=== PATIENT | male | born 1985 | race Caucasian/White ===

== ENCOUNTER 2016-10-28 17:31 | Emergency (ER) | payer OTHER ==
[~2016-10-28] VITALS: Ht 157.5 cm; Wt 50.8 kg
--- NOTE | 2016-10-28 17:48 | ED GI/GU/ABDOMINAL COMPLAINT ---
History of Present Illness General Chief Complaint: General Adult Stated Complaint: BLOOD IN STOOL Source: patient, family Exam Limitations: no limitations Vital Signs & Intake/Output Vital Signs & Intake/Output Vital Signs Date Time Temp Pulse Resp B/P Pulse O2 O2 Flow FiO2 Ox Delivery Rate 10/28 1928 98.6 104 20 157/99 99 Room Air 10/28 1920 99 Room Air 10/28 1735 97.6 110 20 158/101 100 Room Air ED Intake and Output 10/29 0000 10/28 1200 Intake Total Output Total 100 Balance -100 Output, Urine 100 Patient 112 lb Weight Allergies Coded Allergies: verapamil (Intermediate, HYPOTENSION 10/28/16) Penicillins (Mild, RASH 10/28/16) Reconcile Medications No Known Home Medications Triage Note: TRIAGE: PT TO ER WITH MOTHER C/C "BLACK IN STOOL SINCE YESTERDAY". ALSO COMPLAINS OF STOMACH PAIN X COUPLE HOURS GI ASST. -N/V/D. LNBM TODAY. DENIES BLOOD IN STOOL STATES "JUST THAT BLACK CHUNKS". REPORTS URINARY PROBLEMS AT BASELINE, "I'VE BEEN HAVING CONSTANT BLADDER PROBLEMS WHERE URINE IS CONSTANTLY FLOWING INTO THE URETHRA AND NUMBNESS AND TINGLING DOWN PENILE". ALSO, "HAVE A PROBLEM WITH NUMB BUTTOCKS". HAS HAD THESE PROBLEMS FOR 2 YEARS. Triage Nurses Notes Reviewed? yes HPI: Patient is a 31 year old male presents complaining of black stool x 2 days. Has had black stool in the past, but had not lasted for more than 1 day previously. Left lower quadrant pressure/bloating sensation. No exacerbating or alleviating factors. Patient has not taken any medication for his symptoms. Denies fevers, chills, nausea, vomiting. Patient reports that he has had decreased sensation in his penis and rectal area for 2 years. Patient has been seen in multiple emergency departments, has had multiple MRI's and was seen by a neurosurgeon and reports that he has been ruled out for cauda equina syndrome. Patient previously diagnosed with multiple vitamin deficiencies(Vitamins A, C, B1, B12, folic acid) by Dr. Love, does not take any vitamin supplementation. Patient looking for a new primary doctor. (CINDY HAYS,KIRILL) Past History Travel History Traveled to [place] past 21 day No Medical History Any Pertinent Medical History? 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 No (KIRILL GUERRERO) Review of Systems Review of Systems Constitutional: Denies: chills, fever. EENTM: Reports: no symptoms. Respiratory: Denies: cough, short of breath. Cardiovascular: Denies: chest pain. GI: Reports: see HPI. Genitourinary: Reports: see HPI. Musculoskeletal: Reports: no symptoms. Skin: Reports: no symptoms. Neurological/Psychological: Reports: numbness (in p). Hematologic/Endocrine: Denies: bruising, bleeding. Immunologic/Allergic: Denies: splenectomy. (KIRILL GUERRERO) Physical Exam Physical Exam General Appearance: alert, awake, anxious Head: atraumatic, normal appearance Eyes: Bilateral: normal appearance, PERRL, EOMI. Ears, Nose, Throat, Mouth: hearing grossly normal, moist mucous membrane Neck: normal inspection, supple, full range of motion Respiratory: normal breath sounds, chest non-tender, no respiratory distress Cardiovascular: regular rate/rhythm Gastrointestinal: normal bowel sounds, soft, non-tender Rectal: Brown stool heme-negative Back: normal inspection, normal range of motion Extremities: normal range of motion Neurologic/Psych: no motor/sensory deficits, awake, alert, oriented x 3, normal gait, normal mood/affect Skin: intact, normal color, warm/dry Core Measures ACS in differential dx? No Severe Sepsis Present: No Septic Shock Present: No (KIRILL GUERRERO) Progress Differential Diagnosis: anemia, GI bleed, vitamin deficiency, cauda equina, anxiety Plan of Care: Orders Procedure Date/time Status URINALYSIS 10/28 180 Complete PROTHROMBIN TIME 10/29 1807 Complete COMPREHENSIVE METABOLIC PANEL 10/29 1807 Complete CBC WITHOUT DIFFERENTIAL 10/29 1807 Complete TYPE & SCREEN (NOT X-MATCH) 10/28 180 Complete Laboratory Tests 10/28/16 1916: Urine Color YEL, Urine Clarity CLEAR, Urine pH 8.0, Ur Specific [place] 1.015, Urine Protein TRACE H, Urine Ketones NEG, Urine Nitrite NEG, Urine Bilirubin NEG, Urine Urobilinogen 1.0, Ur Leukocyte Esterase NEG, Ur Microscopic SEDIMENT EXAMINED, Urine RBC RARE, Urine WBC RARE, Ur Epithelial Cells RARE, Urine Hemoglobin NEG, Urine Glucose NEG 10/28/165: Anion Gap 14, Estimated GFR > 60, BUN/Creatinine Ratio 15.6, Glucose 88, Calcium 9.4, Total Bilirubin 1.5 H, AST 39, ALT 66, Alkaline Phosphatase 89, Total Protein 7.2, Albumin 4.6, Globulin 2.6, Albumin/Globulin Ratio 1.8, PT 13.1 H, INR 1.25 H, CBC w Diff NO MAN DIFF REQ, RBC 3.78 L, MCV 103.0 H, MCH 35.2 H, RDW 15.2 H, MPV 7.7, Gran % 58.7, Lymphocytes % 33.4, Monocytes % 5.9, Eosinophils % 1.4, Basophils % 0.6, Absolute Granulocytes 2.1, Absolute Lymphocytes 1.2, Absolute Monocytes 0.2, Absolute Eosinophils 0.1, Absolute Basophils 0, PUBS MCHC 34.2 Patient brought in stool sample from home. Stool is brown, there was a small area of black stool which looks like an undigested food particle. Normal rectal tone. Patient has had symptoms of numbness x 2 years, with multiple MRIs at other facilities and evaluation by neurosurgery. Further spine imaging deferred. Patient with hemoglobin of 12.2, macrocytosis. Discussed results of labs with patient and importance of the vitamin supplementation that his previous doctor had recommended for him. No signs of GI bleeding. Appears stable for discharge. (KIRILL GUERRERO) Initial ED EKG: none (KIRILL GUERRERO) Departure Departure Time of Disposition: 1951 Disposition: HOME OR SELF CARE Condition: Stable Clinical Impression Primary Impression: Macrocytic anemia Referrals: JUSTYNA SUBRAMANIAN DO, MD,JOEL LEI MD,ADEBAYO PATIENT HAS NO PRIMARY CARE DR (PCP/Family) ABIGAIL LOVE MD Additional Instructions: Follow-up with Dr. Love or with one of the primary care doctors listed in your discharge paperwork. Start taking a multivitamin daily. Return to the emergency department if worsening of symptoms. Departure Forms: Customer Survey General Discharge Information Prescriptions: Current Visit Scripts No Known Home Medications (CINDY HAYSKIRILL) PA/TYPING SECRETARY Co-Sign Statement Statement: ED Attending supervision documentation- [] I saw and evaluated the patient. I have also reviewed all the pertinent lab results and diagnostic results. I agree with the findings and the plan of care as documented in the PA's/TYPING SECRETARY's documentation. [x] I have reviewed the ED Record and agree with the PA's/TYPING SECRETARY's documentation. [] Additions or exceptions (if any) to the PAs/TYPING SECRETARY's note and plan are summarized below: [] (MARLEN YANG,JUNIOR Mendoza)
[2016-10-28 19:18] LABS: ABSOLUTE BASOPHIL COUNT 0 /CUMM (0.0-0.2); ABSOLUTE EOSINOPHIL COUNT 0.1 /CUMM (0.0-0.7); ABSOLUTE GRANULOCYTE CT 2.1 /CUMM (1.4-6.5); ABSOLUTE LYMPH COUNT 1.2 /CUMM (1.2-3.4); ABSOLUTE MONOCYTE COUNT 0.2 /CUMM (0.10-0.60); BASOPHIL % 0.6 % (0.0-2.0); EOSINOPHIL % 1.4 % (0-5); GRANULOCYTE % 58.7 % (42.2-75.2); MEAN CORPUSCULAR HGB 35.2 PG (27.0-31.0); MEAN CORPUSCULAR HGB CONC 34.2 G/DL (33.0-37.0); MEAN PLATELET VOLUME 7.7 FL (7.4-10.4); PLATELET COUNT 242 /CUMM (130-400); RBC DISTRIBUTION WIDTH 15.2 % (11.5-14.5); RED BLOOD CELL CT 3.78 /CUMM (4.70-6.10); WHITE BLOOD CELL COUNT 3.5 /CUMM (4.8-10.8)
[2016-10-28 19:22] LABS: PT 13.1 SEC (9.4-12.5)
[2016-10-28 19:29] VITALS: BP 157/99
== END 2016-10-28 19:52 ==
LOC: ERH 17:31
PROVIDERS: Physician Assistant
DX: D64.9 Anemia, unspecified (principal)
CPT/HCPCS: 81001

== ENCOUNTER 2016-12-19 16:17 | Emergency (ER) | payer OTHER ==
[~2016-12-19] VITALS: Ht 157.5 cm; Wt 49.9 kg
[2016-12-19 18:44] VITALS: BP 142/94
[2016-12-19 18:51] LABS: ABSOLUTE BASOPHIL COUNT 0 /CUMM (0.0-0.2); ABSOLUTE EOSINOPHIL COUNT 0 /CUMM (0.0-0.7); ABSOLUTE LYMPH COUNT 1.2 /CUMM (1.2-3.4); ABSOLUTE MONOCYTE COUNT 0.3 /CUMM (0.10-0.60); BASOPHIL % 0.7 % (0.0-2.0); EOSINOPHIL % 0.6 % (0-5); GRANULOCYTE % 56.5 % (42.2-75.2); MEAN CORPUSCULAR HGB 35.2 PG (27.0-31.0); MEAN CORPUSCULAR HGB CONC 34.1 G/DL (33.0-37.0); MEAN CORPUSCULAR VOLUME 103.3 FL (80.0-94.0); MEAN PLATELET VOLUME 7.2 FL (7.4-10.4); PLATELET COUNT 246 /CUMM (130-400); RBC DISTRIBUTION WIDTH 15.9 % (11.5-14.5); RED BLOOD CELL CT 3.78 /CUMM (4.70-6.10); WHITE BLOOD CELL COUNT 3.5 /CUMM (4.8-10.8)
--- NOTE | 2016-12-19 18:56 | ED GI/GU/ABDOMINAL COMPLAINT ---
History of Present Illness General Chief Complaint: Abdominal Pain/Flank Pain Stated Complaint: AND PAIN X 2 WEEKS Source: patient Exam Limitations: no limitations Vital Signs & Intake/Output Vital Signs & Intake/Output Vital Signs Date Time Temp Pulse Resp B/P B/P Pulse O2 O2 Flow FiO2 Mean Ox Delivery Rate 12/19 1844 98.8 94 20 142/94 100 Room Air 12/19 1628 98.7 100 16 114/97 98 Room Air Allergies Coded Allergies: verapamil (Intermediate, HYPOTENSION 10/28/16) Penicillins (Mild, RASH 10/28/16) Reconcile Medications No Known Home Medications Triage Note: PT HAVING ABD PAIN BOTH SIDES STATES HE FEELS HE HAS A LOT OF GAS. PT REPORTS THE PAIN STARTED 1.5 WEEKS AGO AND THE PAIN COMES AND GOES BUT WORSE THE PAST 24 HOURS. PT STATES HE IS HAVING DIARRHEA NO BLOOD. Triage Nurses Notes Reviewed? yes Duration: waxing and waning Timing: recent history Severity Numbers: 7 Location: generalized abdomen Radiation: no radiation Activities at Onset: eating Prior Abdominal Problems: similar symptoms HPI: Patient is a 31-year-old male who states that he has significant multi-vitamin deficiencies in his system however he has been advised to take vitamin supplementation however he is noncompliant with this request by multiple evaluations from his primary care doctor who presents emergency room with a chronic history of gas pain of his abdomen in the last 10 days she's been complaining of worsening waxing and waning abdominal pain that's made worse with palpation and eating. Patient does state that flatulence improves his symptoms. Last bowel movement was today no blood no melena noted. Patient is able tolerate by mouth with no nausea or vomiting. Denies any alcohol use or NSAID use. Patient was evaluated at [facility] emergency room on 10/28/2016 for concerns of GI bleed however he was safely discharged noting macrocytic anemia and was strongly advised to follow-up with his primary care doctor which patient has not. Patient is requesting a new primary care doctor. Denies any fevers chills back pain dysuria hematuria. Patient also admits to me that he believes that he has multiple food allergies however no official workup has been performed and states that he only eats chicken for meals and which he states that he's been doing this for many months (SUNDAR CERVANTES) Past History Travel History Traveled to [place] past 21 day No Medical History Any Pertinent Medical History? 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 No (SUNDAR CERVANTES) Review of Systems Review of Systems Constitutional: Reports: no symptoms. EENTM: Reports: no symptoms. Respiratory: Reports: no symptoms. Cardiovascular: Reports: no symptoms. GI: Reports: see HPI, abdominal pain, bloating. Genitourinary: Reports: no symptoms. Musculoskeletal: Reports: no symptoms. Skin: Reports: no symptoms. Neurological/Psychological: Reports: no symptoms. Hematologic/Endocrine: Reports: no symptoms. Immunologic/Allergic: Reports: no symptoms. All Other Systems: Reviewed and Negative (SUNDAR CERVANTES) Physical Exam Physical Exam General Appearance: no apparent distress, alert, comfortable Gastrointestinal: normal bowel sounds, soft, mild generalized abdominal pain Comments: Well-developed well-nourished person in no acute distress HEENT: Normal EENT exam, extraocular motion intact, no nystagmus. Pupils equally round and reactive to light and accommodation. Nose is atraumatic. External auditory canal and Tympanic membranes clear. Pharynx normal. No swelling or edema. Neck: Supple, no lymphadenopathy, normal range of motion without pain or tenderness Back: Nontender, no CVA tenderness. Cardiovascular: Regular rate and rhythms no murmurs rubs or gallops, normal JVP Respiratory: Chest nontender. No respiratory distress.breath sounds clear to auscultation bilaterally Extremity: No edema, no calf tenderness to palpation, normal and equal pulses. Neuro: Alert oriented x3, motor sensory normal, Skin: No appreciable rash on exposed skin, skin is warm and dry. Psych: Mood and affect is normal, memory and judgment is normal. Core Measures ACS in differential dx? No Severe Sepsis Present: No Septic Shock Present: No (SUNDAR CERVANTES) Progress Differential Diagnosis: AAA, AMI, appendicitis, biliary colic, bowel obstruction , colon cancer, cholecystitis, diverticulitis, gastritis, hepatitis, hernia, ischemic bowel, inflamm bowel dis, Becca-Ren tear, orchitis, pancreatitis, prostatitis, peptic ulcer, PUD/GERD, perforated viscous, pyelonephritis, SBO, testicular torsion, ureterolithiasis, urinary retention, urethritis, UTI/pyelo Plan of Care: Orders Procedure Date/time Status Add-on Test (ER Only) 12/19 1849 Active LIPASE 12/19 1842 Complete AMYLASE 12/19 1842 Complete LACTIC ACID 12/19 1833 Complete COMPREHENSIVE METABOLIC PANEL 12/19 1833 Complete CBC WITHOUT DIFFERENTIAL 12/19 1833 Complete URINALYSIS 12/19 164 Complete Laboratory Tests 12/19/162133: Lactic Acid Cancelled 12/19/161842: Anion Gap 13, Estimated GFR > 60, BUN/Creatinine Ratio 13.0, Glucose 84, Lactic Acid 1.8, Calcium 9.4, Total Bilirubin 1.7 H, AST 41, ALT 74 H, Alkaline Phosphatase 89, Total Protein 7.4, Albumin 4.7, Globulin 2.7, Albumin/Globulin Ratio 1.7, Amylase 130 H, Lipase 175 12/19/161833: CBC w Diff NO MAN DIFF REQ, RBC 3.78 L, MCV 103.3 H, MCH 35.2 H, RDW 15.9 H, MPV 7.2 L, Gran % 56.5, Lymphocytes % 33.4, Monocytes % 8.8, Eosinophils % 0.6, Basophils % 0.7, Absolute Granulocytes 2.0, Absolute Lymphocytes 1.2, Absolute Monocytes 0.3, Absolute Eosinophils 0, Absolute Basophils 0, PUBS MCHC 34.1 12/19/161646: Urine Color STRAW, Urine Clarity CLEAR, Urine pH 7.0, Ur Specific [place] <= 1.005, Urine Protein NEG, Urine Ketones NEG, Urine Nitrite NEG, Urine Bilirubin NEG, Urine Urobilinogen 0.2, Ur Leukocyte Esterase NEG, Ur Microscopic EXAM NOT REQUIRED, Urine Hemoglobin NEG, Urine Glucose NEG Patient currently is in no apparent distress and has normal bowel sounds I counseled patient on obtaining a primary care doctor to follow up with and to begin vitamin supplementation regimen for his chronic deficiencies and to begin eating a well balanced healthy dietary intake to improve his symptoms. Patient also was strongly advised to follow up and obtain ultrasound of right upper quadrant however he has no right upper quadrant tenderness on exam. He was GIVEN AN [place].S. REFERAL FOR mildly elevated bilirubin Patient also was requesting outpatient psychiatric follow-up for anxiety. Patient has unremarkable acute findings of blood work patient was strongly advised to follow-up with primary care doctor at [facility] and to follow up with GI if his symptoms continue. Upon discharge patient looks well no apparent distress and will comply with discharge instructions and had no questions (SUNDAR CERVANTES) Initial ED EKG: none (SUNDAR CERVANTES) Departure Departure Disposition: HOME OR SELF CARE Condition: Stable Clinical Impression Primary Impression: Abdominal pain Referrals: MISAEL YANG,ANNA Jay PATIENT HAS NO PRIMARY CARE DR (PCP/Family) Additional Instructions: As discussed begin eating a well healthy balanced diet Please call the phone number at Central scheduling for an outpatient ultrasound tomorrow as THIS prescription has been given TO YOU [phone]. If symptoms worsen return to emergency room. Please call the list of [facility] tomorrow to establish a primary care doctor. If no better in 5 days follow-up and establish topographical engineer DR. DOUGLAS. Please call the list of [facility] outpatient crisis facilities for further evaluation treatment. Departure Forms: Customer Survey General Discharge Information Prescriptions: Current Visit Scripts No Known Home Medications (SUNDAR CERVANTES) PA/HOME HEALTH LPN Co-Sign Statement Statement: ED Attending supervision documentation- [] I saw and evaluated the patient. I have also reviewed all the pertinent lab results and diagnostic results. I agree with the findings and the plan of care as documented in the PA's/HOME HEALTH LPN's documentation. [X] I have reviewed the ED Record and agree with the PA's/HOME HEALTH LPN's documentation. [] Additions or exceptions (if any) to the PAs/HOME HEALTH LPN's note and plan are summarized below: [] (ZORAIDA YANG,VALERIA Mathew)
== END 2016-12-19 20:20 ==
LOC: ERH 16:17
PROVIDERS: Emergency Medicine
DX: R10.84 Generalized abdominal pain (principal)
CPT/HCPCS: 81003

== ENCOUNTER 2017-03-01 08:51 | Emergency (ER) | payer OTHER ==
[~2017-03-01] VITALS: Ht 157.5 cm; Wt 56.7 kg
--- NOTE | 2017-03-01 09:09 | ED GENERAL ADULT ---
History of Present Illness General Chief Complaint: General Adult Stated Complaint: NUMBNESS AND TINGILING ? Source: patient Exam Limitations: no limitations Vital Signs & Intake/Output Vital Signs & Intake/Output Vital Signs Date Time Temp Pulse Resp B/P B/P Pulse O2 O2 Flow FiO2 Mean Ox Delivery Rate 03/01 1022 97.1 80 20 143/92 100 Room Air 03/01 0858 99.2 87 20 149/87 99 Room Air Allergies Coded Allergies: verapamil (Intermediate, HYPOTENSION 10/28/16) Penicillins (Mild, RASH 10/28/16) Reconcile Medications No Known Home Medications Triage Note: PT C/O NUMB BUTTOCKS AND DECREASED FEELING IN RECTUM AND PENIS X 3 DAYS. 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 HAS SEEN NEUROSURGEON [place] FOR SAME PROBLEM WHO TOLD HIM IT ISN'T ASSOCIATED WITH THORACIC HERNIATED DISC IN PAST Triage Nurses Notes Reviewed? yes Onset: 3 days HPI: Mr. Roman is 31 year old male with past medical history of anxiety not on any medication, follow with psychologist. He reported chronic history of numbness and decreased sensation of the perineal area and penis for many years, had multiple MRI and thoracic surgery evaluation without ultimate diagnosis. Patient reported that for the last 3 days noticed more numbness of the area, denied stool incontinence, urinary incontinence, weakness, numbness of hands or feet, history of trauma, history of fall, recent GI or upper respiratory infection. Patient reported multivitamin deficiencies and new adjustment of his diet for which he gained 20 pounds and he thinks it might precipitate for the change in his symptoms. Patient is very obsessive about "cauda equina syndrome", has been reading about it for years and want to know if it fits his symptoms and if he needs to get any more imaging studies to prove it. He was advised to follow with neurology in the past but given his insurance he wasn't able to follow up with your clinic. Review of systems negative for any chest pain, palpitation, shortness of breath, cough, abdominal pain, nausea or vomiting, diarrhea or constipation, muscle or joint pain, headache or blurry vision Vital signs are stable Patient refused GA exam and understand the clinical importance of this exam and accept the risk of his decision. (MARIKA YANG,TIMOTEO) Past History Travel History Traveled to [place] past 21 day No Medical History Any Pertinent Medical History? 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 No (MARIKA YANG,[facility]) Review of Systems Review of Systems Constitutional: Denies: chills, fever, weakness. EENTM: Denies: blurred vision, visual changes, ear discharge, hearing changes. Respiratory: Denies: cough, hemoptysis, orthopnea, short of breath, sputum production. Cardiovascular: Denies: chest pain, edema, orthopena, palpitations. GI: Denies: abdominal pain, bloating, diarrhea, nausea, vomiting. Genitourinary: Denies: discharge, dysuria, frequency, hematuria. Musculoskeletal: Denies: back pain, gout, joint pain, joint swelling, muscle pain, muscle stiffness, neck pain. Skin: Denies: change in skin color, change in hair/nails. Neurological/Psychological: Reports: anxiety, numbness. Denies: ataxia, cognitive dysfunction, confusion, depressed, dementia, headache, paresthesia, tingling, tremors. Hematologic/Endocrine: Denies: bruising, bleeding, polyuria, polydipsia. (MARIKA YANG,[facility]) Review of Systems Immunologic/Allergic: Reports: no symptoms. All Other Systems: Reviewed and Negative (ZORAIDA YANG,VALERIA Mathew) Physical Exam Physical Exam General Appearance: well developed/nourished, no apparent distress, alert, awake , comfortable Head: atraumatic, normal appearance Eyes: Bilateral: normal appearance, PERRL, EOMI. Ears, Nose, Throat: normal pharynx, normal ENT inspection, hearing grossly normal Neck: normal inspection, supple, full range of motion Respiratory: normal breath sounds, chest non-tender, no respiratory distress Cardiovascular: regular rate/rhythm Gastrointestinal: normal bowel sounds, soft, non-tender, no organomegaly Rectal: Patient refused exam Back: normal inspection, normal range of motion, no vertebral tenderness Extremities: normal inspection, normal capillary refill, normal range of motion, no edema Neurologic/Psych: no motor/sensory deficits, awake, alert, oriented x 3 Reflexes: 2+: bicep (R), bicep (L), knee (R), knee (L), ankle (R), ankle (L). Skin: intact, normal color, warm/dry Lymphatic: no anterior cervical bandar Comments: perineal area no skin changes, normal sensation Core Measures ACS in differential dx? No CVA/TIA Diagnosis: No Severe Sepsis Present: No Septic Shock Present: No (TIMOTEO HAIRSTON MD) Progress Differential Diagnoses I considered the following diagnoses in my evaluation of the patient: [ herniating disc, cauda equina syndrome, nerve compression, periphral neuropathy ] Plan of Care: Mr. Roman is 51 year old male with past medical history significant for anxiety. Based on patient's symptoms and physical exam, herniated disc, cauda equina syndrome were excluded. Patient might have these symptoms as a result of prolongated pressure to the area, he reported spending most of the day sitting and searching in the computer. Patient might benefit from seeing neurology clinic, was provided with [facility] neuro clinic that would accept his insurance. No further imaging study is recommended at this time. Patient will be discharged home. Initial ED EKG: none (TIMOTEO HAIRSTON MD) Differential Diagnoses I considered the following diagnoses in my evaluation of the patient: (ZORAIDA YANG,VALERIA Mathew) Departure Departure Disposition: HOME OR SELF CARE Condition: Stable Clinical Impression Primary Impression: Anxiety Referrals: PATIENT HAS NO PRIMARY CARE DR (PCP/Family) Departure Forms: Customer Survey General Discharge Information Prescriptions: Current Visit Scripts No Known Home Medications (TIMOTEO HAIRSTON MD) Resident Co-Sign Statement Statement: ED Attending supervision documentation- [X] I saw and evaluated the patient. I have also reviewed all the pertinent lab results and diagnostic results. I agree with the findings and the plan of care as documented in the Resident's documentation. [X] I have reviewed the ED Record and agree with the Resident's documentation. [] Additions or exceptions (if any) to the Resident's note and plan are summarized below: [I personally seen and examined this patient. I read the above note and agree with what has been written. Patient presents with increasing numbness to his perineal area. Patient denies any incontinence of bowel or bladder. Patient states he has been worked up for cauda equina in the past and was told that he did not have it however he is concerned that he does have a. Patient is adamantly refusing a rectal exam. Patient states that he did a self rectal exam a few weeks ago and that seems to be exacerbated the symptoms so he refuses to have another one. Patient advised that that is the only way that we can rule out any rectal incontinence consistent with cauda equina. Patient states that what he needs is an outpatient MRI and that is what he is here for Us order. Patient has been intermittent bleeding in the emergency department with a normal steady gait. Patient's reflexes are 2+ symmetrically.] (ZORAIDA YANG,VALERIA Mathew) Critical Care Note Critical Care Note Critical Care Time: non-applicable (TIMOTEO HAIRSTON MD) ED Attending Observation Initial Observation Note: I have seen and personally examined MAXINE ROMAN on 03/01/17 at 1016. I agree with the current emergency department documentation. The disposition (admission or discharge) is uncertain at this time, he needs a period of observation for the following reason(s): The ED Nurse caring for this patient has been personally informed as to what the patient is being observed for. (TIMOTEO HAIRSTON MD)
[2017-03-01 10:22] VITALS: BP 143/92
== END 2017-03-01 10:35 ==
LOC: ERH 08:51
DX: F41.9 Anxiety disorder, unspecified (principal)

== ENCOUNTER 2017-10-04 15:28 | Observation (INO) | payer OTHER ==
[~2017-10-04] VITALS: Ht 157.5 cm; Wt 51.7 kg
[2017-10-04 16:49] LABS: ABSOLUTE BASOPHIL COUNT 0 /CUMM (0.0-0.2); ABSOLUTE EOSINOPHIL COUNT 0 /CUMM (0.0-0.7); ABSOLUTE GRANULOCYTE CT 12.8 /CUMM (1.4-6.5); ABSOLUTE LYMPH COUNT 0.7 /CUMM (1.2-3.4); ABSOLUTE MONOCYTE COUNT 0.5 /CUMM (0.10-0.60); BASOPHIL % 0.2 % (0.0-2.0); EOSINOPHIL % 0.1 % (0-5); HEMATOCRIT 47.3 % (42-52); MEAN CORPUSCULAR HGB 29.3 PG (27.0-31.0); MEAN CORPUSCULAR HGB CONC 33.4 G/DL (33.0-37.0); MEAN CORPUSCULAR VOLUME 87.7 FL (80.0-94.0); MEAN PLATELET VOLUME 8.9 FL (7.4-10.4); PLATELET COUNT 274 /CUMM (130-400); RBC DISTRIBUTION WIDTH 13.5 % (11.5-14.5); RED BLOOD CELL CT 5.39 /CUMM (4.70-6.10); WHITE BLOOD CELL COUNT 14.1 /CUMM (4.8-10.8)
[2017-10-04 16:51] LABS: GRANULOCYTE % 91.1 % (42.2-75.2)
--- NOTE | 2017-10-04 19:42 | ED GENERAL ADULT ---
See Addendum History of Present Illness General Chief Complaint: Abdominal Pain/Flank Pain Stated Complaint: R FLANK PAIN Source: patient Exam Limitations: no limitations Vital Signs & Intake/Output Vital Signs & Intake/Output Vital Signs Date Time Temp Pulse Resp B/P B/P Pulse O2 O2 Flow FiO2 Mean Ox Delivery Rate 10/04 1953 98.4 10/04 1749 99.4 10/04 1534 97.3 102 15 135/81 100 Room Air Room Air Allergies Coded Allergies: verapamil (Intermediate, HYPOTENSION 10/28/16) Penicillins (Mild, RASH 10/28/16) nortriptyline (DRY EYES 05/13/17) pimecrolimus (From ELIDEL) (SKIN BURNED 05/13/17) Reconcile Medications No Known Home Medications Triage Note: PT TO ED FOR C/C OF R FLANK PAIN THAT STARTED THIS MORNING WITH ONE EPISODE OF VOMITING THIS MORNING WELL. DENIES DIFFICULTIES URINATING. DENIES DIFFICULTY MOVING BOWELS. Triage Nurses Notes Reviewed? yes Onset: Abrupt Duration: minute(s): Timing: recent history HPI: 10/04/17 7 pm 32-year-old male presents to the emergency department with a one-day history of right-sided flank pain and vomiting. He said he was in his usual state of health until today when he developed right-sided flank pain and vomiting. He also admits to body aches and fever. He denies any hematuria or diarrhea. The onset of symptoms was abrupt, the duration has been just today, the severity is significant; as his symptoms required him to come to the emergency department for care Past History Travel History Traveled to [place] past 21 day No Medical History Any Pertinent Medical History? 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 No Review of Systems Review of Systems Constitutional: Reports: chills, fever. EENTM: Denies: nasal congestion. Respiratory: Denies: short of breath. Cardiovascular: Denies: chest pain. GI: Reports: abdominal pain, nausea, vomiting. Genitourinary: Denies: hematuria. Musculoskeletal: Reports: back pain, muscle pain. Skin: Denies: rash. Neurological/Psychological: Reports: paresthesia. Hematologic/Endocrine: Denies: bruising, bleeding. Physical Exam Physical Exam General Appearance: alert, awake, anxious, mild distress Head: atraumatic, normal appearance Eyes: Bilateral: normal appearance, PERRL, EOMI. Ears, Nose, Throat: normal pharynx, normal ENT inspection, hearing grossly normal Neck: normal inspection, supple, full range of motion Respiratory: normal breath sounds, chest non-tender, no respiratory distress Cardiovascular: regular rate/rhythm Peripheral Pulses: 4+ radial (R), 4+ radial (L) Gastrointestinal: soft, non-tender Back: CVA tenderness (R) Extremities: normal range of motion Neurologic/Psych: no motor/sensory deficits, awake, alert, oriented x 3 Skin: intact, normal color, warm/dry Comments: exam was normal. No hernia. No testicular tenderness or swelling. Core Measures ACS in differential dx? No CVA/TIA Diagnosis: No Sepsis Present: No Sepsis Focused Exam Completed? No Progress Differential Diagnoses I considered the following diagnoses in my evaluation of the patient: [Influenza , appendicitis, pyelonephritis, ureterolithiasis, hernia, testicular torsion] Plan of Care: Orders Procedure Date/time Status RAPID VIRAL INFLUENZA A 10/[address] ABD & PELVIS W/O IV CONTRAS 10/04 2004 Active Add-on Test (ER Only) 10/04 1854 Active CULTURE,URINE 10/04 1640 Active LIPASE 10/04 1621 Complete C-REACTIVE PROTEIN 10/04 1621 Complete COMPREHENSIVE METABOLIC PANEL 10/04 1621 Complete CBC WITHOUT DIFFERENTIAL 10/04 1621 Complete URINALYSIS 10/04 1538 Complete Laboratory Tests 10/04/17 1640: Urine Color YEL, Urine Clarity CLEAR, Urine pH 6.0, Ur Specific [place] >= 1.030 , Urine Protein 30 H, Urine Ketones >=80, Urine Nitrite NEG, Urine Bilirubin NEG@ICTO, Urine Urobilinogen 0.2, Ur Leukocyte Esterase NEG, Ur Microscopic SEDIMENT EXAMINED, Urine RBC 3-5, Urine WBC 1-3 H, Ur Epithelial Cells FEW, Urine Bacteria FEW H, Granular Casts FEW H, Urine Mucus MANY H, Urine Hemoglobin TRACE-INTACT H, Urine Glucose NEG 10/04/17 1636: Anion Gap 22 H, Estimated GFR > 60, BUN/Creatinine Ratio 23.0, Glucose 96, Calcium 10.3 H, Total Bilirubin 1.0, AST 31, ALT 51, Alkaline Phosphatase 102, C-Reactive Prot, Quant 1.0, Total Protein 8.7 H, Albumin 5.6 H, Globulin 3.1, Albumin/Globulin Ratio 1.8, Lipase 140, CBC w Diff MAN DIFF ORDERED, RBC 5.39, MCV 87.7, MCH 29.3, MCHC 33.4, RDW 13.5, MPV 8.9, Gran % 91.1 H, Lymphocytes % 4.8 L, Monocytes % 3.8, Eosinophils % 0.1, Basophils % 0.2, Absolute Granulocytes 12.8 H, Segmented Neutrophils 86 H, Band Neutrophils 5, Absolute Lymphocytes 0.7 L, Lymphocytes 4 L, Monocytes 4, Absolute Monocytes 0.5, Absolute Eosinophils 0, Basophils 1, Absolute Basophils 0, Platelet Estimate ADEQUATE, Normocytic RBCs VERIFIED, Normochromic RBCs VERIFIED Microbiology 10/04 2005 NASOPHARYN: Influenza Virus A & B Rapid Smear - ORD 10/04 1640 URINE ROUT: Urine Culture - RECD Initial ED EKG: none Departure Departure Disposition: STILL A PATIENT Condition: Stable Clinical Impression Primary Impression: Flank pain Referrals: Patient Has No Primary Care Dr (PCP/Family) Departure Forms: Customer Survey General Discharge Information Prescriptions: Current Visit Scripts No Known Home Medications Comments The patient declined IV fluids and also IV contrast. His labs are consistent with dehydration and he has an elevated anion gap. Shared decision-making was utilized in his care. He did agree to noncontrast CT to exclude appendicitis and renal colic. The patient was signed out to Colby Izquierdo at [address] scan and the flu swab is negative d/c with antibiotics and follow-up urology and primary care Critical Care Note Critical Care Note Critical Care Time: non-applicable
--- NOTE | 2017-10-04 20:45 | CT SCAN REPORT ---
EXAMINATION: CT ABDOMEN AND PELVIS WITHOUT CONTRAST CLINICAL INFORMATION: Right flank pain. Evaluate for pyelonephritis COMPARISON: None TECHNIQUE: Multidetector volumetric imaging was performed from the superior aspect of the liver through the pubic symphysis. Sagittal and coronal reformatted images were obtained on the technologist's workstation. DLP: 264 mGy-cm FINDINGS: LUNG BASES: The visualized lung bases are unremarkable. LIVER, GALLBLADDER, AND BILIARY TREE: The liver is normal in size, shape, and attenuation. No focal hepatic lesion or biliary ductal dilatation is present. The gallbladder is unremarkable with no evidence of radiopaque gallstones, gallbladder wall thickening, or obvious pericholecystic inflammatory changes. PANCREAS: Unremarkable. SPLEEN: Unremarkable. ADRENAL GLANDS: Unremarkable. KIDNEYS AND URETERS: The kidneys are normal in size, shape, and attenuation. No hydronephrosis, hydroureter, or calculi seen. No perinephric stranding. BLADDER: Unremarkable. GASTROINTESTINAL TRACT: There is feathery stranding in the periappendiceal fat. There is a appendicolith. The appendix is mildly dilated measuring 8 mm in diameter. This has the appearance of acute appendicitis. See coronal image 48 and 49 series 602 Large bowel normal. Small bowel normal. Stomach normal. ABDOMINAL WALL: No significant hernia is appreciated. LYMPH NODES: Normal. VASCULAR: Unremarkable. PELVIC VISCERA: Unremarkable. OSSEOUS STRUCTURES: Unremarkable. IMPRESSION: Acute appendicitis. Urinary tract within normal limits
--- NOTE | 2017-10-04 22:53 | History & Physical Pre-Op ---
Familia De Leon 10/04/17 7157: General Information and HPI MD Statement: I have seen and personally examined MAXINE ROMAN and documented this H&P. The patient is a 32 year old M who presented with a patient stated chief complaint of abdominal pain[]. Source of Information: patient, family Exam Limitations: no limitations History of Present Illness: Mr Roman is a 32 yr old male with one day h/o of right lower quadrant abdominal pain, CT imaging to day reveals acute appendicitis. 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 Other Medical Hx: thiamine deficience Surgical History Pertinent Surgical History: non-contributory Past Family/Social History Psychosocial History ETOH Use: denies use Illicit Drug Use: denies illicit drug use Exam & Diagnostic Data Last 24 Hrs of Vital Signs/I&O Vital Signs Date Time Temp Pulse Resp B/P B/P Pulse O2 O2 Flow FiO2 Mean Ox Delivery Rate 10/04 1954 98.4 10/04 1749 99.4 10/04 1534 97.3 102 15 135/81 100 Room Air Room Air Intake & Output 10/04 1600 10/04 0800 10/04 0000 Intake Total Output Total Balance Patient 114 lb Weight Weight Reported by Patient Measurement Method Physical Exam General Appearance Alert, Oriented X3, Cooperative, Mild Distress HEENT PERRLA Cardiovascular Regular Rate, Normal S1, Normal S2 Lungs Clear to Auscultation, Normal Air Movement Abdomen pain to palp at mcburney's point, no rovsing's Neurological Strength at 5/5 X4 Ext Extremities No Edema, Normal Pulses Last 24 Hrs of Labs/Lauri: Laboratory Tests 10/04/17 1640: Urine Color YEL, Urine Clarity CLEAR, Urine pH 6.0, Ur Specific [place] >= 1.030 , Urine Protein 30 H, Urine Ketones >=80, Urine Nitrite NEG, Urine Bilirubin NEG@ICTO, Urine Urobilinogen 0.2, Ur Leukocyte Esterase NEG, Ur Microscopic SEDIMENT EXAMINED, Urine RBC 3-5, Urine WBC 1-3 H, Ur Epithelial Cells FEW, Urine Bacteria FEW H, Granular Casts FEW H, Urine Mucus MANY H, Urine Hemoglobin TRACE-INTACT H, Urine Glucose NEG 10/04/17 1636: Anion Gap 22 H, Estimated GFR > 60, BUN/Creatinine Ratio 23.0, Glucose 96, Calcium 10.3 H, Total Bilirubin 1.0, AST 31, ALT 51, Alkaline Phosphatase 102, C-Reactive Prot, Quant 1.0, Total Protein 8.7 H, Albumin 5.6 H, Globulin 3.1, Albumin/Globulin Ratio 1.8, Lipase 140, CBC w Diff MAN DIFF ORDERED, RBC 5.39, MCV 87.7, MCH 29.3, MCHC 33.4, RDW 13.5, MPV 8.9, Gran % 91.1 H, Lymphocytes % 4.8 L, Monocytes % 3.8, Eosinophils % 0.1, Basophils % 0.2, Absolute Granulocytes 12.8 H, Segmented Neutrophils 86 H, Band Neutrophils 5, Absolute Lymphocytes 0.7 L, Lymphocytes 4 L, Monocytes 4, Absolute Monocytes 0.5, Absolute Eosinophils 0, Basophils 1, Absolute Basophils 0, Platelet Estimate ADEQUATE, Normocytic RBCs VERIFIED, Normochromic RBCs VERIFIED Microbiology 10/04 2034 NASOPHARYN: Influenza Virus A & B Rapid Smear - COMP 10/04 1640 URINE ROUT: Urine Culture - RECD Diagnostic Data Other Results SERVICE DATE: 10/04/17 EXAM TYPE: CAT - CT ABD & PELVIS W/O IV CONTRAS EXAMINATION: CT ABDOMEN AND PELVIS WITHOUT CONTRAST CLINICAL INFORMATION: Right flank pain. Evaluate for pyelonephritis COMPARISON: None TECHNIQUE: Multidetector volumetric imaging was performed from the superior aspect of the liver through the pubic symphysis. Sagittal and coronal reformatted images were obtained on the technologist's workstation. DLP: 264 mGy-cm FINDINGS: LUNG BASES: The visualized lung bases are unremarkable. LIVER, GALLBLADDER, AND BILIARY TREE: The liver is normal in size, shape, and attenuation. No focal hepatic lesion or biliary ductal dilatation is present. The gallbladder is unremarkable with no evidence of radiopaque gallstones, gallbladder wall thickening, or obvious pericholecystic inflammatory changes. PANCREAS: Unremarkable. SPLEEN: Unremarkable. ADRENAL GLANDS: Unremarkable. KIDNEYS AND URETERS: The kidneys are normal in size, shape, and attenuation. No hydronephrosis, hydroureter, or calculi seen. No perinephric stranding. BLADDER: Unremarkable. GASTROINTESTINAL TRACT: There is feathery stranding in the periappendiceal fat. There is a appendicolith. The appendix is mildly dilated measuring 8 mm in diameter. This has the appearance of acute appendicitis. See coronal image 48 and 49 series 602 Large bowel normal. Small bowel normal. Stomach normal. ABDOMINAL WALL: No significant hernia is appreciated. LYMPH NODES: Normal. VASCULAR: Unremarkable. PELVIC VISCERA: Unremarkable. OSSEOUS STRUCTURES: Unremarkable. IMPRESSION: Acute appendicitis. Urinary tract within normal limits DICTATED BY: Charles Santo MD DATE/TIME DICTATED:10/04/172035 PEN AND PENCIL REPAIRER:DAMARI DATE/TIME TRANSCRIBED:10/04/172035 Assessment/Plan Assessment/Plan: acute appendicitis plan to OR this evening for lap appy per Dr Lindsay As Ranked By This Provider Problem List: 1. Acute appendicitis Neftali ENCARNACIONReginald 10/04/17 2332: Attending MD Review Statement Attending Statement Attending MD Statement: examined this patient, discuss w/resident/PA/FOREST AND CONSERVATION WORKER, agreed w/resident/PA/FOREST AND CONSERVATION WORKER, discussed with family, reviewed EMR data (avail), reviewed images Attending Assessment/Plan: Patient see and examined, agree with above. Abdominal pain since this AM, getting worse. AVSS. Abd-soft, +RLQ tenderness. WBC 14. CT scan - acute appendicitis. Will make NPO/IVF/IV Abx, plan for Lap Appy. D/W patient, family, and ED staff.
--- NOTE | 2017-10-04 22:54 | Admission Core Measures ---
Acute Coronary Syndrome (CM) ACS Core Measures Acute Coronary Syndrome Diagnosis No Congestive Heart Failure (NEW) CHF Core Measures Congestive Heart Failure Diagnosis No Cerebrovascular Accident (NEW) CVA Core Measures CVA/TIA Diagnosis No Venous Thromboembolism VTE Core Haley (View Protocol) VTE Risk Factors Surgery No Mechanical VTE Prophylaxis d/t N/A MechProphylax Ordered No VTE Pharm Prophylaxis d/t LowRisk-No Interven Req'd Problem List As ranked by this Provider includes Assessment & Plan 1. Acute appendicitis HOME MEDS Home Med List No Known Home Medications
--- NOTE | 2017-10-04 23:39 | Operative Report ---
Operative/Inv Procedure Report Surgery Date: 10/04/17 Name of Procedure: Laparoscopic Appendectomy Pre-Operative Diagnosis: Acute Appendicitis Post-Operative Diagnosis: Same Estimated Blood Loss: less than 50ml Surgeon/Associate Chemist: Reginald Jett Anesthesia: general endotracheal tube IV Fluids: 1200 cc Drains: None Specimens: Appendix Complications: None Condition: Stable Operative Indication: This is a 32-year-old male who presented to the emergency room with abdominal pain. After appropriate workup was completed the patient was diagnosed with acute appendicitis. A laparoscopic possible open appendectomy was discussed in detail. All risks including but not limited to bleeding, infection, and injury to surrounding bowel were discussed in detail. The patient understood everything and decided to proceed. This was also discussed in front of the patient's mother. Operative/Procedure Note Note: The patient was brought to the operating room and placed on the table in supine position. Venodyne stockings were placed and adequate general endotracheal anesthesia was obtained. The patient was prepped and draped in standard surgical fashion. Began the procedure by making a 2 cm transverse incision in the infraumbilical crease. Incision was carried down to the fascia. Once the fascia was clearly visualized it was picked up between 2 Sharonda clamps and divided in the midline. Once we entered the peritoneum 2 stay 0 Vicryl sutures were placed on each side and a 12 mm blunt port was inserted. The abdominal cavity was insufflated to 15 mmHg. And a 10 mm 30 laparoscope was introduced. Upon initial examination no obvious gross pathology was seen, some hyperemia and inflammatory reaction was noted in the right lower quadrant. Accessory trocars were placed, both 5 mm, one in the left lower quadrant and one suprapubic. Ascending colon was identified and traced proximally, terminal ileum was identified, and we did note the appendix. The base of the appendix was identified and appeared healthy. Distal appendix was markedly inflamed and thickened and adhered to the omentum. Using blunt dissection and harmonic scalpel the appendix was carefully dissected away from surrounding structures. Once the appendix was away from the omentum and the sidewall the mesoappendix was divided using Harmonic scalpel maintaining hemostasis until the appendiceal base was clearly visualized and freely up in the air. At that point we switched to a 5 mm laparoscope and a 45 mm neville Endo JHONNY load was inserted and the base was transected. The appendix was placed in an Endobag and removed through the umbilical trocar site. The abdominal cavity was reinsufflated and we switched back to a 10 mm laparoscope. Staple line was examined and no bleeding was noted. No other abnormalities were noted. The pelvis and the right lower quadrant were irrigated until clear. All ports were removed under direct visualization, no obvious bleeding was noted. The umbilical trocar site was closed using 0 Vicryl suture. The skin was closed using 4-0 Monocryl. Steri- Strips and dressings were placed. The patient was successfully extubated and transferred to the recovery room in stable condition. The patient tolerated procedure well with no complications. Findings: Acute suppurative appendicitis, non-perforated
--- NOTE | 2017-10-05 05:56 | PN- General Surgery ---
See Addendum Subjective Subjective: poc s/p lap appy awake alert comfortable deneis cp, sob, no n+v denies cp sob no n+v Objective Vital Signs and I&Os Vital Signs Date Time Temp Pulse Resp B/P B/P Pulse O2 O2 Flow FiO2 Mean Ox Delivery Rate 10/04 1953 98.4 10/04 1749 99.4 10/04 1534 97.3 102 15 135/81 100 Room Air Room Air Intake & Output 10/05 0000 10/04 1600 10/04 0000 10/03 1600 Intake Total Output Total Balance Patient 114 lb 114 lb Weight Weight Reported by Patient Measurement Method Physical Exam: cv; rrr lungs: clear abd: soft, flat, +bs drsgs dry ext: warm, distal cms intact Assessment/Plan Assessment/Plan surgical stable plan oob advance diet plan for home d/c later today Core Measures Venous Thromboembolism VTE Risk Factors Surgery No Mechanical VTE Prophylaxis d/t N/A MechProphylax Ordered No VTE Pharm Prophylaxis d/t LowRisk-No Interven Req'd
--- NOTE | 2017-10-05 06:07 | Patient Discharge Instructions ---
Discharge Instructions General Discharge Information You were seen/treated for: acute appendicitis You had these procedures: laparoscopic appendectomy Watch for these problems: temp>101.5, increased wound drainage/redness Other wound care: keep wound clean and dry Diet Continue normal diet: Yes Activity Activity Limited to: Weight bear as tolerated Other activity limits: no strenuous activity Acute Coronary Syndrome Inclusion Criteria At DC or during hospital stay patient has or had the following: ACS DIAGNOSIS No Discharge Core Measures Meds if any: Prescribed or Continued at Discharge Meds if any: NOT Prescribed or Continued at Discharge Congestive Heart Failure Inclusion Criteria At DC or during hospital stay patient has or had the following: CHF DIAGNOSIS No Discharge Core Measures Meds if any: Prescribed or Continued at Discharge Meds if any: NOT Prescribed or Continued at Discharge Cerebrovascular accident Inclusion Criteria At DC or during hospital stay patient has or had the following: CVA/TIA Diagnosis No Discharge Core Measures Meds if any: Prescribed or Continued at Discharge Meds if any: NOT Prescribed or Continued at Discharge Venous thromboembolism Inclusion Criteria VTE Diagnosis No VTE Type NONE VTE Confirmed by (Test) NONE Discharge Core Measures - Per Current guidelines, there needs to be overlap - treatment for the first 5 days of Warfarin therapy. - If discharged on Warfarin prior to 5 days of - overlap therapy, the patient will need to be - assessed for post discharge needs including - *Post discharge parental anticoagulation - *Warfarin and/or parental anticoagulation education - *Follow up date to check INR post discharge At least 5 days overlap therapy as Inpatient No Meds if any: Prescribed or Continued at Discharge Note: Overlap Therapy is Warfarin and Anticoagulant Meds if any: NOT Prescribed or Continued at Discharge
[2017-10-05 08:00] VITALS: BP 118/70
--- NOTE | 2017-10-05 10:13 | PN- General Surgery ---
Subjective Subjective: PT LAYING IN BED, SAID THAT HE HAD BREAKFAST THIS MORNING AND THEN WAS GIVEN PERCOCET AND VOMITED. HE AND HIS MOM THINK THAT THE PERCOCET UPSET HIS STOMACH BC AFTER TAKING IT HE FELT LIKE THE ROOM WAS SPINNING. PAIN 02/04. VOIDING. NO FLATUS YET. HAS NOT AMBULATED YET Objective Vital Signs and I&Os Vital Signs Date Time Temp Pulse Resp B/P B/P Pulse O2 O2 Flow FiO2 Mean Ox Delivery Rate 10/04 1954 98.4 10/04 1749 99.4 10/04 1534 97.3 102 15 135/81 100 Room Air Room Air Intake & Output 10/05 1600 10/05 0800 10/05 0000 10/04 1600 10/04 0000 Intake Total 350 Output Total 0 Balance 350 Intake, Oral 350 Output, Urine 0 Patient 114 lb 114 lb Weight Weight Reported by Patient Measurement Method Physical Exam: GEN- NAD RESP-CLEAR CARDIO-RRR ABD- ND, +BS, SOFT, APPROPRIATED TENDER. SCANT BLOOD AND DRESSINGS. NO SURROUNDING ERYTHEMA EXT- WARM AND DRY, NO EDEMA Results Last 48 Hours of Labs: Laboratory Tests 10/04 10/04 1640 1636 Chemistry Sodium (137 - 145 mmol/L) 141 Potassium (3.5 - 5.1 mmol/L) 4.0 Chloride (98 - 107 mmol/L) 97 L Carbon Dioxide (22 - 30 mmol/L) 22 Anion Gap (5 - 16) 22 H BUN (9 - 20 mg/dL) 23 H Creatinine (0.7 - 1.2 mg/dL) 1.0 Estimated GFR (>60 ml/min) > 60 BUN/Creatinine Ratio (7 - 25 %) 23.0 Glucose (65 - 99 mg/dL) 96 Calcium (8.4 - 10.2 mg/dL) 10.3 H Total Bilirubin (0.2 - 1.3 mg/dL) 1.0 AST (17 - 59 U/L) 31 ALT (21 - 72 U/L) 51 Alkaline Phosphatase (< 127 U/L) 102 C-Reactive Prot, Quant (<1.0 mg/dL) 1.0 Total Protein (6.3 - 8.2 g/dL) 8.7 H Albumin (3.5 - 5.0 g/dL) 5.6 H Globulin (1.9 - 4.2 gm/dL) 3.1 Albumin/Globulin Ratio (1.1 - 2.2 %) 1.8 Lipase (23 - 300 U/L) 140 Hematology CBC w Diff MAN DIFF ORDERED WBC (4.8 - 10.8 /CUMM) 14.1 H RBC (4.70 - 6.10 /CUMM) 5.39 Hgb (14.0 - 18.0 G/DL) 15.8 Hct (42 - 52 %) 47.3 MCV (80.0 - 94.0 FL) 87.7 MCH (27.0 - 31.0 PG) 29.3 MCHC (33.0 - 37.0 G/DL) 33.4 RDW (11.5 - 14.5 %) 13.5 Plt Count (130 - 400 /CUMM) 274 MPV (7.4 - 10.4 FL) 8.9 Gran % (42.2 - 75.2 %) 91.1 H Lymphocytes % (20.5 - 51.1 %) 4.8 L Monocytes % (1.7 - 9.3 %) 3.8 Eosinophils % (0 - 5 %) 0.1 Basophils % (0.0 - 2.0 %) 0.2 Absolute Granulocytes (1.4 - 6.5 /CUMM) 12.8 H Segmented Neutrophils (42.2 - 75.2 %) 86 H Band Neutrophils (0.0 - 5.0 %) 5 Absolute Lymphocytes (1.2 - 3.4 /CUMM) 0.7 L Lymphocytes (20.5 - 51.1 %) 4 L Monocytes (1.7 - 9.3 %) 4 Absolute Monocytes (0.10 - 0.60 /CUMM) 0.5 Absolute Eosinophils (0.0 - 0.7 /CUMM) 0 Basophils (0.0 - 2.0 %) 1 Absolute Basophils (0.0 - 0.2 /CUMM) 0 Platelet Estimate (ADEQUATE) ADEQUATE Normocytic RBCs VERIFIED Normochromic RBCs VERIFIED Urines Urine Color (YEL,AMB,STR) YEL Urine Clarity (CLEAR) CLEAR Urine pH (5.0 - 8.0) 6.0 Ur Specific [place] (1.001 - 1.035) >= 1.030 Urine Protein (NEG,<30 MG/DL) 30 H Urine Ketones (NEG) >=80 Urine Nitrite (NEG) NEG Urine Bilirubin (NEG) NEG@ICTO Urine Urobilinogen (0.1 - 1.0 EU/dl) 0.2 Ur Leukocyte Esterase (NEG) NEG Ur Microscopic SEDIMENT EXAMINED Urine RBC (0 - 5 /HPF) 3-5 Urine WBC (0 - 2 /HPF) 1-3 H Ur Epithelial Cells (NONE,FEW) FEW Urine Bacteria (NEG/NONE) FEW H Granular Casts (NONE /LPF) FEW H Urine Mucus (FEW,NONE) MANY H Urine Hemoglobin (NEG) TRACE-INTACT H Urine Glucose (N MG/DL) NEG Assessment/Plan Assessment/Plan 32YO M SP LAP APPY POD1 DC PERCOCET, WILL TRY JUST MOTRIN AND TYLENOL FOR PAIN ADVANCE DIET TOLERATED ENCOURAGE AMBULATION IS POSSIBLE DC LATER TODAY IF TOLERATES DIET AND PAIN CONTROLLED Core Measures Venous Thromboembolism VTE Risk Factors Surgery No Mechanical VTE Prophylaxis d/t N/A MechProphylax Ordered No VTE Pharm Prophylaxis d/t LowRisk-No Interven Req'd
[2017-10-05 12:00] VITALS: BP 100/70
--- NOTE | 2017-10-05 14:48 | Surg Short-stay <48hrs Dis Sum ---
Visit Information Visit Dates Admission Date: 10/04/17 Discharge Date: 10/05/17 Surgical Short Stay DC Summary Admission Diagnosis: Acute appendicitis Final Diagnosis: same s/p laparoscopic appendectomy Procedure(s): Laparoscopic appendectomy Summary/Significant Findings: Patient presented to the ER with acute appendicitis, confirmed on CT scan. He was taken emergently for a laparoscopic appendectomy on 10/05/17. Patient tolerated procedure well, without complication. He was transferred to the ICU due to bed overflow in stable condition. Patient had an adverse reaction to Percocet, which caused him nausea and vomiting. He refused narcotics/nsaids. Diet was advanced and tolerated. He is ambulating without difficulty and medically stable for discharge at this time. Remainder of hospital course was uneventful. Condition at Discharge: Stable Discharge Disposition: home or self care Discharge instructions provided to patient/family: Yes Post discharge follow-up plan: Follow up in 2 weeks for postop check
== END 2017-10-05 15:20 ==
LOC: ERH 15:28 → ER-OR 15:42 → ERH 15:42 → CRI 23:45 → ENTRNSPT 10-05 15:17 → CRI 10-05 15:20 → CMPTRNSPT 10-05 15:32
PROVIDERS: Physician Assistant Medical
DX: K35.80 Unspecified acute appendicitis (principal); R10.31 Right lower quadrant pain
CPT/HCPCS: 6020; 74176; 81001; 87086; 87804; 87804-59; 96374; 96375; G0378; J0690; J0696; J0780; J2405; J7042